=== PATIENT | female | born 1955 | race African-American/Black ===

== ENCOUNTER 2020-04-27 12:02 | Emergency (ER) | payer BC, SELFPAY ==
[2020-04-27 12:28] VITALS: BP 144/84; PULSE 92; RESP 16; TEMP 36.2; O2SAT 100
--- NOTE | 2020-04-27 12:58 | ED.GENADULT ---
HPI - General Adult General Chief complaint: Headache Stated complaint: Headache Time Seen by Provider: 04/27/20 12:56 Source: patient and RN notes reviewed Mode of arrival: ambulatory Limitations: no limitations History of Present Illness HPI narrative: 64-year-old -Col[place] female presents with complaints of upper respiratory infection, sneezing, LT otalgia and pressure, some facial congestion, facial pressure, and intermittent headache (not the worst of her life) for the past 14 days. Scarlet reports increasing symptoms daily. Ibuprofen last 2 days ago and allergy medication without relief. No facial swelling. Denies cough and chest congestion. Nasal congestion and rhinorrhea. No sore throat. No high fevers, drooling, neck or throat swelling. No voice change. No nausea, vomiting, or abdominal pain. Tolerating liquids well. Denies dyspnea, difficulty swallowing, jaw pain, dental pain, foreign body sensation, and rash. No chest pain or shortness of breath. The patient reports she have not been diagnosed with COVID-19. The patient reports she is not waiting for the results of a COVID-19 lab test. The patient reports she do not have chills, weakness, or fatigue. The patient reports she do not have a new or worsening cough or shortness of breath. The patient reports she do not have any loss of taste or smell, or diarrhea. Denies recent traveling. Denies concerns for COVID-19 or exposures been home with limited outdoor exposure except for essential household needs, work, and return home. At this time, patient is not suspected of having COVID-19. Some parts of this dictation were generated by voice recognition software and may contain typographical and/or grammatical inaccuracies. Related Data Allergies Allergy/AdvReac Type Severity Reaction Status Date / Time aspirin Allergy Mild STOMACH Unverified 07/04/08 14:43 UPSET Sulfa (Sulfonamide Allergy Mild Hives Unverified 04/27/20 12:17 Antibiotics) Review of Systems Review of Systems: Narrative: CONSTITUTIONAL: Denies fever, chills, sweats. EYES: Denies visual changes, redness, discharge. ENT: Complains of rhinorrhea, congestion, facial congestion and pressure, LT otalgia and pressure. Denies sore throat. CARDIOVASCULAR: Denies chest pain, palpitations, edema. RESPIRATORY: Denies dyspnea, wheezing, cough. GASTROINTESTINAL: Denies abdominal pain, nausea, vomiting, diarrhea. SKIN: Denies rash or itching. MUSCULOSKELETAL: Denies acute back pain, joint pain, or myalgia. NEUROLOGIC: Denies numbness or focal weakness. Complains of intermittent GODOY. PSYCHIATRIC: Denies anxiety or depression. All other systems reviewed & are unremarkable except as noted in HPI and below. [facility] Past Medical History Medical History (Updated 04/27/20 @ 13:26 by RUBENS Ahumada) Allergies Cyst Scarlet reports in early 20s Surgical History Surgical History (Updated 04/27/20 @ 13:26 by RUBENS Auhmada) History of hysterectomy History of removal of cyst Removed from left wrist and above the right breast Family History Family History (Updated 04/27/20 @ 15:46 by RUBENS Ahumada) Father Medical history unknown Mother Lung disease Social History Social History (Updated 04/27/20 @ 13:28 by RUBENS Ahumada) Smoking status: Never smoker Tobacco type: cigarettes Second hand tobacco smoke exposure: Yes Alcohol intake: never Substance use: never Substance use type: does not use Living arrangements: with family Occupation/Education: occupation Gender identity (if verbalized by the patient): Female Sexual Orientation (if Verbalized by the Patient): Straight or Heterosexual Comments At time of signature, agree with nurse past medical, surgical, social, and family history. There is no relevant family history pertinent to the presenting complaint. Exam Narrative: Exam Narrative: GENERAL: This is a we
[2020-04-27 13:23] VITALS: BP 138/90
== END 2020-04-27 13:23 | disposition home or self-care (01) ==
PROVIDERS: Emergency Provider Nurse Practitioner Family
DX: J01.10 Acute frontal sinusitis, unspecified (principal)
CPT/HCPCS: 99213; G0463

== ENCOUNTER 2021-06-20 08:10 | Emergency (ER) | payer BC, SELFPAY ==
--- NOTE | ~2021-06-20 | XR_ITS ---
EXAMINATION: XR sacrum coccyx min 2V EXAM DATE: 06/20/2021 09:06 INDICATION: Tailbone pain s/p fall today. TECHNIQUE: Sacrum frontal, inlet, lateral projections. There are no prior studies for comparison. FINDINGS: There are no acute sacral fractures or dislocations identified. There is no subcutaneous g as. The soft tissue is unremarkable. There are no radiopaque foreign bodies. IMPRESSION: No acute osseous findings. Reviewed, dictated and finalized at location D. IMPRESSION: No acute osseous findings.
[2021-06-20 08:19] VITALS: BP 158/83; PULSE 72; RESP 16; TEMP 37; O2SAT 98
--- NOTE | 2021-06-20 08:19 | ED.HEATRA ---
HPI - Head Injury General Chief complaint: Fall Stated complaint: head injury Time Seen by Provider: 06/20/21 08:39 Mode of arrival: ambulatory Limitations: no limitations History of Present Illness HPI Narrative: 65-year-old female presents after a fall this morning. Reports she slipped on her stairs, falling backward hitting her buttocks and then her head on a wooden stair. She reports she did not lose consciousness, she laid there for a few minutes until she felt okay to get up. She felt a slight amount of dizziness right after her fall. She denies current dizziness or headache. She denies any vomiting or nausea. She denies any external injury to her head. Reports she hit the back of her head. She reports she is having tailbone pain that worsens when she sits. She reports this happened approximately an hour and a half before arrival. She did not take any pain medicines before arrival. She is not on any blood thinners. MD Complaint: fall Related Data Home Medications Medication Instructions Recorded Confirmed ozacuwdpugir-jtx-okzu-FA-vit K 1 tablet PO DAILY 06/20/21 06/20/21 [Adults Multivitamin] Allergies Allergy/AdvReac Type Severity Reaction Status Date / Time aspirin Allergy Mild STOMACH Unverified 06/20/21 08:28 UPSET Sulfa (Sulfonamide Allergy Mild Hives Unverified 06/20/21 08:28 Antibiotics) Review of Systems Review of Systems: CONSTITUTIONAL: Denies malaise, chills, sweats, or fever. EYES: Denies visual changes, redness, or discharge. GASTROINTESTINAL: Denies nausea, vomiting SKIN: Denies bruising, open skin, redness MUSCULOSKELETAL: Reports tailbone pain. Denies neck pain, back pain NEUROLOGIC: Denies numbness, weakness, or headache. . All systems reviewed & are unremarkable except as noted in HPI and below PMFSH Past Medical History Medical History (Updated 06/20/21 @ 09:55 by Cassy Pearl NP) Allergies Cyst Scarlet reports in early 20s Surgical History Surgical History (Updated 04/27/20 @ 13:26 by RUBENS Ahumada) History of hysterectomy History of removal of cyst Removed from left wrist and above the right breast Family History Family History (Updated 04/27/20 @ 15:47 by RUBENS Ahumada) Father Medical history unknown Mother Lung disease Social History Social History (Updated 04/27/20 @ 13:28 by RUBENS Ahumada) Smoking status: Never smoker Tobacco type: cigarettes Second hand tobacco smoke exposure: Yes Alcohol intake: never Substance use: never Substance use type: does not use Gender identity (if verbalized by the patient): Female Sexual Orientation (if Verbalized by the Patient): Straight or Heterosexual Comments At time of signature, agree with nursing past medical, surgical, social and family history. There is no relevant family history pertinent to the presenting complaint Exam Narrative: GENERAL: Well-appearing, well-nourished, and in no acute distress. HEAD: Normocephalic, atraumatic. EYES: PERRLA, sclera clear, and EOMI. No nystagmus. ENT: Nares clear no rhinorrhea or epistaxis. Mucous membranes moist. NECK: Supple. No lymphadenopathy. No jugular venous distension, thyromegaly, or carotid bruits. Carotids were easily palpable bilaterally. CHEST: No respiratory distress. Speaks in full sentences. HEART: Regular rate and rhythm EXTREMITIES: Grossly normal range of motion. No edema. Normal strength and sensation. SKIN: Warm, dry, no visible rash. NEURO: Alert and oriented x3. No focal deficits. Cranial nerves II through XII grossly intact PSYCH: Normal mood and affect Course Course Emergency Course: Patient is aware of diagnosis, understands and agrees to treatment plan. Anticipatory guidance given. Patient agrees to follow-up as directed and is aware of reasons to seek care at the emergency department. Portions of this record may have been created with voice recognition softwar
== END 2021-06-20 09:56 | disposition home or self-care (01) ==
PROVIDERS: Emergency Provider Nurse Practitioner
DX: M53.3 Sacrococcygeal disorders, not elsewhere classified (principal); S09.90XA Unspecified injury of head, initial encounter; W10.9XXA Fall (on) (from) unspecified stairs and steps, initial encounter
CPT/HCPCS: 72220; 99213; G0463

== ENCOUNTER 2023-04-27 08:24 | Emergency (ER) | payer OTHER, SELFPAY ==
--- NOTE | ~2023-04-27 | XR_ITS ---
EXAMINATION: XR shoulder RT min 2V INDICATION: Right shoulder pain TECHNIQUE: Four views of the right shoulder are submitted. COMPARISON: None FINDINGS: Normal alignment. No fracture. 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 Soft tissues are unremarkable. IMPRESSION: 1. No acute osseous abnormality. Reviewed, dictated and finalized at location L. 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
[2023-04-27 08:39] VITALS: BP 120/66; PULSE 83; RESP 16; TEMP 37.1; O2SAT 98
--- NOTE | 2023-04-27 08:44 | ED.UPPEXIN ---
HPI - Extremity Injury (Upper) General Chief Complaint: Extremity Injury, Upper Stated Complaint: right shoulder pain Time Seen by Provider: 04/27/23 08:44 Source: patient, RN notes reviewed and old records reviewed Mode of arrival: ambulatory Limitations: no limitations History of Present Illness HPI narrative: 67 old female presents to the [facility] with complaints of right shoulder pain. Patient reports that she fell 1 week ago, 04/19, Wednesday. Has had intermittent pain with decreased range of motion No bruising or swelling noted. 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 Positive radial pulse and capillary refill under 2 seconds Related Data Home Medications Medication Instructions Recorded Confirmed multivit with minerals-iron 18 1 tablet PO DAILY 06/20/21 04/27/23 mg-folic ac 400 mcg-vit K 25 mcg tablet (Adults Multivitamin) lisinopril 20 mg tablet 20 mg PO DAILY 01/12/22 04/27/23 cholecalciferol (vitamin D3) 50 50 mcg PO DAILY 03/24/23 04/27/23 mcg (2,000 unit) capsule Allergies Allergy/AdvReac Type Severity Reaction Status Date / Time aspirin Allergy Mild STOMACH Verified 04/27/23 09:01 UPSET Sulfa (Sulfonamide Allergy Mild Hives Verified 04/27/23 09:01 Antibiotics) Review of Systems Review of Systems: All systems reviewed & are unremarkable except as noted in HPI and below Constitutional: Constitutional: Reports no additional constitutional complaints Eyes: Eyes: Reports no additional eye complaints ENT: Reports system reviewed and no additional complaints, except as documented Cardiovascular: Cardiovascular: Reports no additional cardiovascular complaints, Denies chest pain and Denies dyspnea Respiratory: Respiratory: Reports no additional respiratory complaints, Denies chest congestion, Denies cough and Denies dyspnea Gastrointestinal: Gastrointestinal: Reports no additional gastrointestinal complaints, Denies abdominal pain, Denies nausea and Denies vomiting Musculoskeletal: Musculoskeletal: Reports as per HPI and Reports arthralgias (Right shoulder) Integumentary/Breasts: Skin/Breast: Reports system reviewed and no additional complaints, except as docu Neurologic: Reports system reviewed and no additional complaints, except as documented Psychiatric: Psychiatric: Reports no additional psychiatric complaints Allergic/Immunologic: Allergic/Immunologic: Reports no additional allergic/immunologic complaints PMFSH Past Medical History Medical History Allergies Cyst Scarlet reports in early 20s Hypertension rx meds Leukopenia Screening mammogram, encounter for Surgical History Surgical History H/O colonoscopy (12/20/22) H/O lithotripsy History of removal of cyst Removed from left wrist and above the right breast History of total abdominal hysterectomy Family History Family History Father Medical history unknown Mother Lung disease Hypertension Sibling Hypertension sister Grandparent Hypertension maternal grandmother maternal grandfather Social History Social History Smoking status: Never smoker Tobacco type: cigarettes Second hand tobacco smoke exposure: Yes Alcohol intake: never Substance use: never Substance use type: does not use Do You Feel Safe in your Home?: Yes Lack of Transportation: No Lack of Food: Never True Current Housing: I Have Housing Concerned About Future Housing: No Difficulty Paying Gas/Electric Bills: No Difficulty Paying for Meds: No Currently Unemployed: No Education: Decline to Answer Difficulty w/ Childcare or Family Care: No Living arrangements: other Additional living arrangements comments: Occupation/
== END 2023-04-27 09:20 | disposition home or self-care (01) ==
PROVIDERS: Emergency Provider Nurse Practitioner; PCP Internal Medicine
DX: S46.911A Strain of unspecified muscle, fascia and tendon at shoulder and upper arm level, right arm, initial encounter (principal); W19.XXXA Unspecified fall, initial encounter; I10 Essential (primary) hypertension
CPT/HCPCS: 73030; 99213; G0463

== ENCOUNTER 2024-05-22 13:09 | Outpatient (CLI) | payer OTHER, SELFPAY ==
--- NOTE | ~2024-05-22 | DEXA_ITS ---
Bone Density Report Name: DIANA KYLE Age: 68 Sex: Female Ethnicity: White Date of : 1955 Indication: postmenopausal; screening for osteoporosis; hysterectomy; Referring Provider: BEN, MUNDO Sauceda Study: Bone densitometry was performed. Exam Date: May 22, 2024 Accession number: [id number] Bone Density: Region BMD T-score Z-score Classification AP Spine(L1-L4) 1.104 0.5 2.4 Normal Femoral Neck (Left) 0.892 0.4 2.0 Normal Total Hip (Left) 0.970 0.2 1.5 Normal Femoral Neck (Right) 0.836 -0.1 1.5 Normal Total Hip (Right) 0.961 0.2 1.5 Normal Total Hip Mean 0.966 0.2 1.5 Normal World Health Organization criteria for BMD impression classify patients as: Normal (T-score at or above -1.0), Osteopenia (T-score between -1.0 and -2.5), or Osteoporosis (T-score at or below -2.5). 10-year Fracture Risk: FRAX not reported because: All T-scores for Spine Total, Hip Total, Femoral Neck at or above -1.0 Clinical Information Provided by Patient: Has used the following medications: Vitamin D Has the following medical conditions: Hysterectomy Patient maximum height was 66.0 Menopause Age: 37 Onset of menses at age 14 Number of children 1 Impression: The patient has normal bone mass. Discussion: BONE DENSITY IS ABOVE THE MINIMUM DESIRABLE LEVEL AT ALL SKELETAL SITES TESTED. This patient?s bone mineral density is above the minimum desirable level (T-score -1.0 or better) at all sites measured. The patient should follow a healthful lifestyle (good nutrition with adequate calcium and vitamin D, and appropriate weight-bearing exercise). Follow-Up: Consider repeating this study in 5 years or sooner if there is some new clinical indication. Reported by: CUCA on 05/22/2024 1:42:00 PM. Reviewed, dictated and finalized at location ALashanda W[place]
--- OUTSIDE RECORDS SUMMARY | 2024-05-22 14:28 | XMS_ITS | CONTINUITY OF CARE DOCUMENT ---
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
--- OUTSIDE RECORDS SUMMARY | 2024-05-22 14:28 | XMS_ITS | Continuity of Care Document ---
Author Organization [facility] Address [address] [place] [address] [address] [place] [address] Phone Care Team Providers Care Document Design Specialist Name Role Phone [facility] Unavailable [...] Diagnoses Date Provider Providers Copied on Encounter [facility], [address] [place] [address] [address], [place], [place], [id number], [place] tel:[phone] SEC [facility] No Information 200 8 [facility] . [address] [facility], [facility] [address], [place], [id number], [place]. tel:[phone] Referring Provider: Ti Wise, [address] [place] [address] [address], [place], [address]. tel:[phone] sulting Provider: Carlos Lozada, [address] [place], [place] [address]ate [facility], [place], [address]. tel:[phone] [facility], [address] [place] [address] [address], [place], [place], [id number], [place] tel:[phone] SEC [facility] No Information [address]ICKY Luke. [facility] , [address], [place], [address], [place]. tel:[phone] Family History Family Member Type Diagnosis Age [...]
== END 2024-05-22 13:10 | disposition home or self-care (01) ==
LOC: ANHIMG 13:12
PROVIDERS: PCP Internal Medicine; Visit Provider Internal Medicine
DX: Z13.820 Encounter for screening for osteoporosis (principal); Z78.0 Asymptomatic menopausal state
CPT/HCPCS: 77080

== ENCOUNTER 2024-08-17 15:14 | Outpatient (CLI) | payer OTHER, SELFPAY ==
--- NOTE | ~2024-08-17 | CT_ITS ---
Non-contrast CT scan of the Abdomen and Pelvis Clinical indication: Renal stone Technique: 2.5 mm axial scans were obtained through the abdomen and pelvis without intravenous or or al contrast. Dose reduction technique was used on this scan by utilizing automated exposure control a nd iterative reconstruction technique. The dose-length product (DLP) was 620.14 mGy-cm. Findings: Images through the lung bases reveal no abnormalities. There is no evidence of renal or ureteral calculi. The kidneys and the ureters are nondilated. The liver, spleen, pancreas, gallbladder, and adrenals appear normal. There is no aortic aneurysm. There is no evidence of bowel obstruction. Images through the pelvis were performed. There is no evidence of ascites or lymphadenopathy. Urinary bladder unremarkable. No pelvic mass seen. No ascites. Impression: No significant abnormality seen. Reviewed, dictated and finalized at [facility]. Impression: No significant abnormality seen.
== END 2024-08-17 15:15 | disposition home or self-care (01) ==
LOC: MICIMG 15:16
PROVIDERS: PCP Internal Medicine; Visit Provider Internal Medicine
DX: N20.0 Calculus of kidney (principal)
CPT/HCPCS: 74176

== ENCOUNTER 2025-01-15 07:53 | Outpatient (CLI) | payer OTHER, SELFPAY ==
--- OUTSIDE RECORDS SUMMARY | 2007-09-28 09:37 | XMS_ITS | Continuity of Care Document ---
Author Organization [facility] Address [address] [place] [address] [address] [place] [address] Phone Care Team Providers Care Remote Sensing Technologist Name Role Phone [facility] Unavailable Unavail able Carlos Lozada Unavailable Unavailable Procedures Procedure Date SV Poly Carb Sph +/- 7.12 To +/- 20 D Ju Frames Deluxe Tax - Medical Eye Exam, New Patient Refraction Advance Directives Directive Yes / No Effective Date File Name No Information Encounters Encounter Description Practice Location Reason(s) For Visit Diagnoses Date Provider Providers Copied on Encounter [facility], [address] [place] [address] [address], [place], [place], [id number], [place] tel:[phone] SEC [facility] No Information 200 8 [facility] . [address] [facility], [facility] [address], [place], [id number], [place]. tel:[phone] Referring Provider: Ti Wise, [address] [place] [address] [address], [place], [address]. tel:[phone] sulting Provider: Carlos Lozada, [address] [place], [place] [address]ate [facility], [place], [address]. tel:[phone] [facility], [address] [place] [address] [address], [place], [place], [id number], [place] tel:[phone] SEC [facility] No Information [address]ICK[address] Luke. [facility] , [address], [place], [address], [place]. tel:[phone] Family History Family Member Type Diagnosis Age At Onset No Information Payers Payer name Insurance type Covered republican ID Authoriza tion(s) No Information Social History Type Description Quantity Date Captured Comments Sex Female Smoking Status No Information Chief Complaint And Reason For Visit No Information Reason For Referral Reason For Referral No Information History Of Present Illness Encounter Date Complaint History Of Prese nt Illness No Information Functional Status Date Functional Assessmen t No Information Instructions Date Instruction Additional Infor mation No Information Assessments Type Assessment Date No Information Patient Care Teams Name Effective Dates (start - stop) Status Members No Information
--- NOTE | ~2025-01-15 | MM_ITS ---
EXAMINATION: MM screening presley BI w joaquin HISTORY: Screening TECHNIQUE: Craniocaudal and mediolateral oblique 3-D tomosynthesis images were obtained and synthetic 2-D images were generated. CAD analysis was submitted and interpreted. COMPARISON: No prior mammogram is available for comparison at this institution. BREAST PARENCHYMAL COMPOSITION: Not dense: There are scattered areas of fibroglandular density. FINDINGS: There is no evidence of suspicious mass, calcification, or architectural distortion to suggest malignancy in either breast. There has been no suspicious interval change. IMPRESSION: 1. No mammographic evidence of malignancy. 2. Recommend routine screening mammography in one year. BI-RADS Category 1: Negative Reviewed, dictated and finalized at location B.
== END 2025-01-15 07:54 | disposition home or self-care (01) ==
LOC: ANHFOHIMG 07:55
PROVIDERS: PCP Internal Medicine; Visit Provider Obstetrics & Gynecology
DX: Z12.31 Encounter for screening mammogram for malignant neoplasm of breast (principal)
CPT/HCPCS: 77063; 77067